=== PATIENT | female | born 1990 | race Caucasian/White ===

== ENCOUNTER → 2016-06-28 | Outpatient (CLI) | payer MEDICARE, OTHER ==
--- NOTE | ~2016-06-28 | CR63 ---
[facility] A Service of [facility] RADIOLOGY TEXT RESULTS PATIENT: SIMON ALFRED LOCATION: [facility] : [birth year] UNIT #: [id number] AGE: [address]: REAGAN ROSE SEX: F ORDER DR: [id number] [facility] [address] [place], [place] [address] [id number] O MR#: [id number] Acc #: [id number] NAME: SIMON ALFRED : 1990 SEX: F STUDY DATE/TIME: 06/28/2016 11:56 UNIT: [facility] ROOM: STUDY DESCRIPTION: CR Chest 2 View Attending Physician: Kathy Mota Referring Physician: Kathy Mota Ordering Physician: Kathy Mota Primary Care Physician: Vivi Webb M.D. MEDICAL IMAGING REPORT This report is preliminary unless electronic signature is present EXAM Chest x-ray 06/28 HISTORY Cough, congestion, runny nose over the last four days. FINDINGS Two views of the chest were obtained. No comparison. The cardiac and mediastinal contours are normal. The right lung is clear. There is some minimal infiltrate or atelectasis in the lingula. No pneumothorax on either side of the chest. IMPRESSION Minimal infiltrate or atelectasis in the lingula, otherwise negative chest. Dictated by... Gregory Kumar Jr., M.D. THIS IS AN ELECTRONICALLY VERIFIED REPORT Gregory Kumar Jr., M.D. at 06/29/2016 8:24 AM NIMISHA/shefali TD: 06/28/2016 13:11 JOB #: [id number] MEDICAL IMAGING REPORT Page 1 of 1 COPY
== END | disposition home or self-care (01) ==
LOC: CRAD 11:37
DX: R05 Cough (principal); J98.4 Other disorders of lung
CPT/HCPCS: 71020